=== PATIENT | female | born 1985 | race Caucasian/White ===

== ENCOUNTER 2025-05-06 21:52 | Emergency (ER) | payer OTHER, SELFPAY ==
[2025-05-06 21:57] VITALS: BP 124/87
[2025-05-06 22:06] VITALS: BP 141/81
[2025-05-06 22:07] VITALS: BMI 42.0
--- NOTE | 2025-05-06 22:15 | ED.GENMED ---
History of Present Illness
General
Chief Complaint: Allergic Reaction
Source: patient
Time Seen by Provider: 05/06/25 22:10
History of Present Illness
History of Present Illness:
39-year-old female presents to the emergency room complaining of shortness of breath. Patient was awoken from sleep with shortness of breath. She was seen at an urgent care today for what she describes as an infected toenail. She was prescribed
doxycycline and Naprosyn. She took these medications prior to going to bed. She believes she might be having an allergic reaction. Patient denies any history of asthma or wheezing. She has no pre-existing allergies. Patient denies any fever or
chills.
Past History
Past History
ED Past Medical History: Other (elevated lft's with pregnacy)
ED Past Surgical History: Appendectomy, Cholecystectomy and Other (Dental )
Social History
Tobacco: Smoker
Alcohol: Occasional
Drug: None
Personal: Single
Living: with roommate
Employment: Employed
Family History
Family History: Hypertension
Phy Exam
Physical Exam
Physical Exam:
General: Awake, Alert, Oriented X3. Moderate increased work of breathing
Vitals: unremarkable
Head: Atraumatic
Eyes: Pupils equal, EOMI
Throat: Airway intact, no exudates
Neck: Trachea midline
Lungs: Diffuse expiratory wheezing
Heart: Regular rate, no murmurs
Abd: Soft, Nontender, No pulsatile mass
Neuro: Nonfocal
Skin: Warm, dry, no urticarial rash noted
Extremities: pulses equal b/l, no edema. Right great toe with significant erythema and crusting blood at the medial and lateral sides of the nailbed. No obvious paronychia.
Course
Orders/Labs/Results
Orders:
Orders
05/06/25 22:14
Dexamethasone Sod Phosphate [Decadron] 10 mg IV NOW STA
Diphenhydramine [Benadryl] 50 mg IV NOW STA
Ipratropium Nebs [Atrovent Nebules] 1 mg INH R NOW STA
05/06/25 22:15
0.9% Sodium Chloride 500 ml [Nss] 500 ml IV BOLUS
Test Result ONCE
05/06/25 22:22
Basic Metabolic Panel Urgent
Complete Blood Count/With Diff Urgent
HCG, Serum Qualitative Screen Urgent
05/06/25 23:37
CR Chest - 2 Views Urgent
Comment:
Reason For Exam: shortness of breath, wheezing
Abnormal Lab Results
05/06/25
22:22
Hct 35.5 L %
(37.0-47.0)
Absolute Neuts (auto) 6.8 H 10^3/uL
(1.4-6.5)
Chloride 110 H mmol/L
(98-107)
Creatinine 0.5 L mg/dL
(0.6-1.0)
Glucose 130 H mg/dl
(70-99)
05/06/25 22:22
05/06/25 22:22
Vital Signs
Initial and Last Documented VS:
Initial Vital Signs
Temp Pulse Resp Pulse Ox
98.5 F 88 16 98
05/06/25 21:55 05/06/25 21:55 05/06/25 21:55 05/06/25 21:55
Last Documented Vital Signs
Temp Pulse Resp BP Pulse Ox
98.5 F 82 20 123/69 96
05/06/25 21:55 05/06/25 23:30 05/06/25 23:30 05/07/25 01:19 05/07/25 01:17
MDM/Problems Addressed
Differential Diagnosis Includes:
Allergic reaction, asthma/COPD exacerbation, acute bronchitis
MDM/Problems Addressed:
Patient presents with wheezing that temporally seem to occur shortly after taking medication. She was prescribed Doxy and Naprosyn. Impossible to know which was truly the cause of either. Patient had significant wheezing on arrival which quickly
improved with a 1 hour albuterol treatment. Patient also treated Benadryl, Decadron and Pepcid. She was observed for couple hours and remained stable feeling much better. She was able to ambulate without shortness of breath or difficulty. Will
send a prescription for albuterol metered-dose inhaler, and additional 3 days of prednisone and an EpiPen. Will also replace the doxycycline with Keflex. However given the patient's primary problem is ingrown nails with is likely to help her is
soaking and podiatry follow-up for removal/debridement of the culprit nail.
*Radiology
Radiology exam reviewed: preliminary read by ED provider
*Pulse Oximetry
Patient hypoxic: no
*Critical Care Note
Total Time (30-74mins, 75-104mins- exclusive of procedures): Not Applicable
ED Attending Note
-
Portions of this chart may have been created with voice recognition software.� Occasional wrong word or��sound alike� substitutions may have occurred due to the inherent limitations of voice recognition software.
Discharge Plan
Departure
Patient Disposition: Home (Routine Discharge)
Date of Disposition: 05/07/25
Time of Disposition: 01:43
Patient with high blood pressure during this ER visit?: No
Condition: Good
Discharge Problem:
Allergic reaction, Ingrown nail of great toe of right foot
Instructions: Allergic reaction - ED discharge instructions, Ingrown toenail - ED discharge instructions
Prescriptions:
New
albuterol sulfate 90 mcg/actuation aerosol powdr breath activated
2 inh inhalation Q6H PRN (Reason: shortness of breath or wheezing) Qty: 1 0RF
cephalexin 500 mg capsule
500 mg PO BID 7 Days Qty: 14 0RF
prednisone 50 mg tablet
50 mg PO DAILY Qty: 3 0RF
epinephrine [EpiPen] 0.3 mg/0.3 mL auto-injector
0.3 mg IM .STAT PRN (Reason: anaphylaxis) Qty: 1 0RF
No Action
dextroamphetamine-amphetamine 10 MG tablet
10 mg PO QPM
dextroamphetamine-amphetamine [Adderall XR] 30 MG capsule,extended release 24hr
30 mg PO DAILY
Referrals:
Faye Ibrahim MD [Family Provider, Internal Medicine]
Wm Ann DPM [Specified Professional Personl, Podiatry]
Activity Restrictions/Additional Instructions:
You presented to the emergency room today with wheezing. This may have been an allergic reaction to the medications you are prescribed. I would stop the doxycycline. Antibiotics are not typically the most important factor in treating an ingrown
nail. Soaking the toe is the thing that is most likely to help. I have given you contact information for a bagging machine operator who can provide you with the permanent treatment for this. I have sent up prescription for Keflex to replace doxycycline. For
your wheezing I sent prescriptions for albuterol inhaler and prednisone. I have also sent a prescription for an EpiPen if you were to have another allergic reaction you should give yourself the EpiPen shot. It is important you also follow-up with
your primary care doctor in a couple days.
Interventions
Interventions:
*Risk Screen - Suicide Last Done: 05/06/25 21:55
*General Assessment Last Done: 05/06/25 21:55
*Neglect/Abuse Screening Last Done: 05/06/25 21:55
*ED- Fall Risk Assessment Last Done: 05/06/25 21:55
*ED COVID-19 Vaccine History Last Done: 05/06/25 21:55
*Nursing Disposition Last Done: 05/07/25 02:11
ED- Cardiac Assessment Last Done: 05/06/25 22:12
ED- Pulmonary Assessment Last Done: 05/06/25 22:12
ED-Skin Assessment Last Done: 05/06/25 22:12
Discharge Date and Time
Discharge Date/Time: 05/07/25 02:12
Print Language: SINHALA
[2025-05-06] MEDS: NSS 500 IV (22:19)
[2025-05-06] MEDS: DECADRON 10 MG IV (22:20)
[2025-05-06] MEDS: BENADRYL 50 MG IV (22:20)
[2025-05-06] MEDS: ATROVENT NEBULES 1 MG INH (22:20)
[2025-05-06 22:37] LABS: % Basophils 0.6 % (0-2); % Eosinophils 5.9 % (0-6); % Immature Granulocytes 0.3 % (0-0.5); % Lymphocytes 21.9 % (20.5-51.1); % Monocytes 5.7 % (1.7-9.3); % Neutrophils 65.6 % (42.2-75.2); Absolute Basophils 0.1 10^3/uL (0-0.2); Absolute Eosinophils 0.6 10^3/uL (0-0.7); Absolute Lymphocytes 2.3 10^3/uL (1.2-3.4); Absolute Monocytes 0.6 10^3/uL (0.1-0.6); Absolute Neutrophils 6.8 10^3/uL (1.4-6.5); Hematocrit 35.5 % (37.0-47.0); Hemoglobin 12.1 g/dL (12.0-16.0); Mean Corp Hgb Conc. 34.1 g/dL (33.0-37.0); Mean Corpuscular Hgb 28.6 pg (27.0-31.0); Mean Corpuscular Volume 83.9 fL (81.0-99.0); Mean Platelet Volume 10.4 fL (7.4-10.4); Nucleated Red Blood Cells % 0 %; Platelet Count 243 10^3/uL (130-400); Red Blood Cell Count 4.23 10^6/uL (4.20-5.40); Red Cell Dist. Width 13.5 % (11.5-14.5); White Blood Cell Count 10.3 10^3/uL (4.8-10.8)
--- NOTE | 2025-05-06 22:48 | EDRN ---
Patient is breathing more easily at this time, VSS will continue to monitor
[2025-05-06 22:55] LABS: Blood Urea Nitrogen 11 mg/dl (7-17); Calcium 9.1 mg/dl (8.4-10.2); Carbon Dioxide 24 mmol/L (22-30); Chloride 110 mmol/L (98-107); Estimated Creatinine Clearance > 125 ml/min; Glucose 130 mg/dl (70-99); HCG, Serum Qualitative Screen Negative; Potassium 3.8 mmol/L (3.5-5.1); Sodium 140 mmol/L (135-145); eGFR > 60.00
--- NOTE | 2025-05-07 01:02 | EDRN ---
Patient is sleeping at this time, call garcia in reach, does not appear to be in any distress
[2025-05-07 01:19] VITALS: BP 123/69
--- NOTE | 2025-05-07 01:22 | EDRN ---
Patient ambulated around with no shortness of breath and decrease in o2 sat's, Dr. nguyen aware
== END 2025-05-07 02:12 | disposition home or self-care (01) ==
LOC: EMR 21:52
PROVIDERS: EMERGENCY PHYSICIAN Emergency Medicine; FAMILY PHYSICIAN Internal Medicine
DX: R06.2 Wheezing (principal); T50.995A Adverse effect of other drugs, medicaments and biological substances, initial encounter; L60.0 Ingrowing nail; F17.200 Nicotine dependence, unspecified, uncomplicated
CPT/HCPCS: 99284; 96374; 96375; 96361; 94640; 71046; 80048; 84703; 85025

== ENCOUNTER 2025-10-03 15:53 | Emergency (ER) | payer SELFPAY ==
[2025-10-03 15:55] VITALS: BP 131/83
--- NOTE | 2025-10-03 17:21 | ED.GENMED ---
History of Present Illness
General
Chief Complaint: Allergic Reaction
Source: patient
Exam Limitations: none
Time Seen by Provider: 10/03/25 17:10
History of Present Illness
History of Present Illness:
40-year-old female presents with pain itching and burning to the scalp starting yesterday. 2 days ago she tried a new hair dye and the day after she tried the dye her scalp started becoming irritated and red she also notes oozing from the scalp.
She never had this type of reaction before. She is healthy otherwise and does not take any medications regularly. No other complaints at this time
Past History
Past History
ED Past Medical History: Other (elevated lft's with pregnacy)
ED Past Surgical History: Appendectomy, Cholecystectomy and Other (Dental )
Social History
Tobacco: Smoker
Alcohol: Occasional
Drug: None
Personal: Single
Living: with roommate
Employment: Employed
Family History
Family History: Hypertension
Phy Exam
Physical Exam
Physical Exam:
General: Well-appearing female no acute respiratory distress
HEENT: Normal cephalic there is irritation and erythema to the scalp with some areas of drainage. The scalp is diffusely tender.
Extremities: No cyanosis
Course
Orders/Labs/Results
Orders:
Orders
10/03/25 17:17
Dexamethasone Sod Phosphate [Decadron] 10 mg IV NOW STA
Diphenhydramine [Benadryl] 25 mg IV NOW STA
Famotidine [Pepcid] 20 mg IV NOW STA
Ketorolac [Toradol] 15 mg IV NOW STA
10/03/25 18:03
0.9% Sodium Chloride 1000 ml [Nss] 1,000 ml IV BOLUS
Vital Signs
Initial and Last Documented VS:
Initial Vital Signs
Temp Pulse Resp BP Pulse Ox
98.4 F 95 18 131/83 95
10/03/25 15:55 10/03/25 15:55 10/03/25 15:55 10/03/25 15:55 10/03/25 15:55
Last Documented Vital Signs
Temp Pulse Resp BP Pulse Ox
98.4 F 95 18 131/83 95
10/03/25 15:55 10/03/25 15:55 10/03/25 15:55 10/03/25 15:55 10/03/25 17:23
MDM/Problems Addressed
Differential Diagnosis Includes:
Patient with burning itching and pain to the scalp after applying a new hair dye. Suspect contact dermatitis. No evidence of underlying cellulitis. Will treat initially with Decadron Benadryl Pepcid as well as Toradol. Will plan on sending home
on oral prednisone as well
*Pulse Oximetry
SaO2: 95
Oxygen Mode of Delivery: Room air
Patient hypoxic: no
*Critical Care Note
Total Time (30-74mins, 75-104mins- exclusive of procedures): Not Applicable
Update Note
Update Note:
Patient with improved symptoms after treatment here. I suspect underlying allergy mediated process of contact dermatitis. Will have her continue supportive care with Tylenol ibuprofen or Benadryl will prescribe prednisone as well stable for
discharge
ED Attending Note
-
Portions of this chart may have been created with voice recognition software.� Occasional wrong word or��sound alike� substitutions may have occurred due to the inherent limitations of voice recognition software.
Discharge Plan
Departure
Patient Disposition: Home (Routine Discharge)
Date of Disposition: 10/03/25
Time of Disposition: 18:49
Patient with high blood pressure during this ER visit?: No
Discharge Problem:
Contact dermatitis
Instructions: Contact dermatitis
Prescriptions:
New
prednisone 20 mg tablet
40 mg PO DAILY 5 Days Qty: 10 0RF
No Action
dextroamphetamine-amphetamine 10 MG tablet
10 mg PO QPM
dextroamphetamine-amphetamine [Adderall XR] 30 MG capsule,extended release 24hr
30 mg PO DAILY
albuterol sulfate 90 mcg/actuation aerosol powdr breath activated
2 inh inhalation Q6H PRN (Reason: shortness of breath or wheezing) Qty: 1 0RF
cephalexin 500 mg capsule
500 mg PO BID 7 Days Qty: 14 0RF
prednisone 50 mg tablet
50 mg PO DAILY Qty: 3 0RF
epinephrine [EpiPen] 0.3 mg/0.3 mL auto-injector
0.3 mg IM .STAT PRN (Reason: anaphylaxis) Qty: 1 0RF
Referrals:
Faye Ibrahim MD [Family Provider, Internal Medicine]
Activity Restrictions/Additional Instructions:
Continue with Benadryl before hours if needed or Tylenol or ibuprofen for pain. Start steroids tomorrow and take as directed. Return if worse otherwise follow-up with your doctor
Interventions
Interventions:
*Risk Screen - Suicide Last Done: 10/03/25 15:55
*General Assessment Last Done: 10/03/25 15:55
*Neglect/Abuse Screening Last Done: 10/03/25 15:55
*ED COVID-19 Vaccine History Last Done: 10/03/25 17:07
*ED Influenza Vaccine History Last Done: 10/03/25 17:07
ED- Cardiac Assessment Last Done: 10/03/25 16:47
ED- Pulmonary Assessment Last Done: 10/03/25 16:47
ED-Skin Assessment Last Done: 10/03/25 16:47
Discharge Date and Time
Print Language: SAMMARINESE
[2025-10-03] MEDS: BENADRYL 25 MG IV (17:51)
[2025-10-03] MEDS: PEPCID 20 MG IV (17:52)
[2025-10-03] MEDS: DECADRON 10 MG IV (17:52)
[2025-10-03] MEDS: TORADOL 15 MG IV (17:52)
[2025-10-03] MEDS: NSS 1000 IV (18:04)
== END 2025-10-03 19:05 | disposition home or self-care (01) ==
LOC: EMR 15:53
PROVIDERS: EMERGENCY PHYSICIAN Emergency Medicine; FAMILY PHYSICIAN Internal Medicine
DX: L25.9 Unspecified contact dermatitis, unspecified cause (principal); F17.200 Nicotine dependence, unspecified, uncomplicated
CPT/HCPCS: 99284; 96374; 96375 ×3; 96361